=== PATIENT | male | born 1955 | race Caucasian/White ===

== ENCOUNTER 2016-08-17 06:30 | Emergency (ER) | payer OTHER ==
[~2016-08-17] VITALS: Ht 182.9 cm; Wt 131.8 kg
[~2016-08-17 06:30] MED LIST: ASPI325T32 PO; LISI1TAB11 PO
[2016-08-17 06:37] VITALS: BP 192/101; PULSE 75; RESP 16; O2SAT 98
--- NOTE | 2016-08-17 06:50 | ED.REPORT ---
HPI-General Illness Date of Service Aug 17, 2016 ED Provider: Anam Clark MD 60 y/o male with a hx of HTN presents to the ED due to a a "stinging" sensation in his temples, more on the left, onset 2-3 days ago. The pt states "several years ago, I had a blood vessel pop in the eye that felt like a bee sting. This feeling is exactly the same." Associated sx include a slight change in vision. He denies headache, fever, cough and SOB. He experienced the stinging sensation about 5 times over the last few days. It has been gradually improving and he is currently asymptomatic. The pt states he came in today because he lives alone and he didn't want to risk experiencing anything serious. Nursing Notes Stated Complaint: BEE STING ON TEMPLES Chief Complaint: General Complaint Nursing Notes Reviewed: Yes (Gentis, Royal Wins not reconciled) Allergies: Coded Allergies: No Known Allergies (Unverified , 02/03/16) Scheduled Aspirin (Aspirin) 325 Mg Tablet 325 MG PO DAILY Lisinopril / HCTZ 20-25 mg (Lisinopril / HCTZ 20-25 mg) 1 Each Tablet 1 EACH PO DAILY Lisinopril / HCTZ 20-25 mg (Lisinopril / HCTZ 20-25 mg) 1 Each Tablet 1 EACH PO DAILY General Time Seen by MD: 06:46 Chief Complaint Other (stinging sensation in temples) Hx Obtained From: Patient Arrived By: Walk-in Sudden in Onset?: Yes Onset Occurred: 3 days ago Symptom Duration: Since onset Severity: Current: No pain currently Severity: Maximum: No pain Recent Healthcare: No recent doctor visit Similar Sx Previous: No Past Medical History Past Medical History Achilles tendon rupture BPH Admit for polyarthropathy 02/03/16 w/concern for infectious etiology - hospital eval negative Reports: Hypertension Past Surgical History Reports: Tonsillectomy Smoking History Never Smoker Social History Alcohol Use: "Social" Drug Use: THC Ambulatory Status Independent Review of Systems Reports: stinging sensation in the temples (now resolved) Full Review of Systems Constitutional: Denies: Fever Respiratory: Denies: Non-productive cough, Shortness of breath Neurologic: Reports: Vision change (slightly), Denies: Headache Complete sys rev & neg: except as marked. Physical Exam Vital Signs Vital Signs Date Time Temp Pulse Resp B/P Pulse Ox O2 Delivery O2 Flow Rate FiO2 08/17/16 10:06 36.6 73 12 188/103 98 Room Air 08/17/16 10:05 73 12 188/103 98 Room Air 08/17/16 08:30 69 14 157/98 99 Room Air 08/17/16 06:37 36.6 75 16 192/101 98 Room Air Initial VS: Reviewed, Vital signs abnormal (HTN) ENT: Mucous membranes moist, Conjunctiva normal, No scleral icterus Neck: Supple, Non-tender, Full range of motion Respiratory: Breath sounds normal, No respiratory distress Cardiovascular: Regular rate & rhythm, Heart sounds normal Abdomen / GI: Soft, Non-tender Extremities: Vascular intact, Neuro intact, No swelling, No tenderness Skin: Warm, Dry, No cyanosis Neurologic: Alert, Oriented, Nonfocal General/Constitutional: Awake, Alert, No acute distress, Well appearing, Cooperative Head / Eyes: Atraumatic, Normocephalic, PERRL, Temporal arteries NL Interpretation & Diagnostics Lab Results Interpretation Result Diagram: 08/17/16 0735 08/17/16 0735 Test 08/17/16 07:35 White Blood Count 7.4th/mm3 (3.8-10.1) Red Blood Count 4.72mil/mm3 (4.40-5.80) Hemoglobin 15.6g/dL (13.8-17.2) Hematocrit 45.2% (41.0-50.0) Mean Corpuscular Volume 95.8fL (81-100) Mean Corpuscular Hemoglobin 33.1pg (27.0-35.0) Mean Corpuscular Hemoglobin Concent 34.5% (32.0-37.0) Red Cell Distribution Width 13.1% (12.3-15.4) Platelet Count 178bil/L (150-400) Neutrophils (%) (Auto) 63.2% (40-74) Lymphocytes (%) (Auto) 21.6% (14-46) Monocytes (%) (Auto) 8.6% (4-12) Eosinophils (%) (Auto) 5.8% (0-5) Basophils (%) (Auto) 0.4% (0-3) Erythrocyte Sedimentation Rate 2mm/hr (0-30) Sodium Level 140mEq/L (134-144) Potassium Level 4.0mEq/L (3.5-5.2) Chloride Level 103mEq/L (97-108) Carbon Dioxide Level 24mmol/L (18-29) Blood Urea Nitrogen 18mg/dL (8-27) Creatinine 0.92mg/dL (0.76-1.27) Estimat Glomerular Filtration Rate 89mL/min (>59) Glucose Level 116mg/dL (60-99) Calcium Level 9.4mg/dL (8.5-10.1) Total Bilirubin 1.5mg/dL (0.0-1.2) Aspartate Amino Transf (AST/SGOT) 30U/L (0-50) Alanine Aminotransferase (ALT/SGPT) 49U/L (0-44) Alkaline Phosphatase 64U/L (25-160) Total Protein 7.2g/dL (6.4-8.4) Albumin 4.1g/dL (3.4-5.0) Lab Results Interpretation: CBC normal CMP normal Sedimentation rate normal Re-Eval/Medical Decision Med Decision/Clinical Course This is a pleasant 60-year-old male who presents with a chief complaint that a couple days ago he had some left caodaism discomfort, then basically separately resolved. He had no visual symptoms. He lives by himself and was not sure whether not to be concerned, and ultimately he decided he should come in and get checked out. Having any symptoms. He has no prior history of temporal arteritis, does not have a headache at present, he has no neurologic symptoms, he has had no redness swelling or ocular symptoms. He has no additional complaints. On exam he is severely hypertensive-it turns out he is out of his hypertensive medicines. He used to take lisinopril/hydrochlorothiazide and get up from the clinic, but he did not have a PCP in the total they could not help him anymore, so he is transitioning to the [place] [facility], and has an appointment but not for #4 weeks. As a result he has been completely out of his blood pressure medicines. However he has had no end organ symptoms. The patient has no temporal artery tenderness, but given the location and symptoms of sedimentation rate was obtained and was normal. I am not finding evidence of giant cell arteritis or other dangerous etiologies. Patient's asymptomatic here in the department. I did go ahead and resume him on his lisinopril hydrochlorothiazide, he received a dose in the department his blood pressures improved, and I written a prescription until [facility] Routine precautions reviewed. Patient is discharged in good condition. Source of Hx: Old records Time of Eval: 09:45 Patient Status: Condition improved Re-Evaluation/Progress Note: Rechecked pt. Discussed lab results, imaging results, diagnosis and plan to discharge. Pt understands and agrees with the plan. F/U instructions and RTER warning given. All questions addressed. Counseled Regarding: Diagnosis, Lab results, Need for follow-up, When/why to return to ED Discharge & Departure Departure Notes Additional dx: Transient Left caodaism discomfort, resolved (unclear etiology) Primary Impression: HTN (hypertension) with goal to be determined Disposition: Home Discharge Condition All VS Reviewed: Yes Condition: Stable Additional Instructions: 1. A dangerous cause of the caodaism discomfort he had recently was not identified. Your blood tests were normal. 2. Your blood pressure was very elevated, and I have gone ahead and written a prescription for your lisinopril hydrochlorothiazide refill, and [facility] 3. Activities as tolerated. 4. Return if new or worsening symptoms. Referrals: NOPCP (PCP) Scribe Attestation Portions of this note were transcribed by Thor Morel. I, , personally performed the history, physical exam and medical decision-making;I reviewed and confirmed the accuracy of the information in the transcribed note. Signed by Tierra Jackson. 08/17/16 09:57 Anam Clark MD Aug 17, 2016 06:50 Thor Morel Aug 17, 2016 07:13
[2016-08-17 07:58] LABS: BASOPHILS % (AUTO) 0.4 % (0-3); EOSINOPHILS % (AUTO) 5.8 % (0-5); MONOCYTES % (AUTO) 8.6 % (4-12); Mean Corpuscular Hemoglobin 33.1 pg (27.0-35.0); Mean Corpuscular Volume 95.8 fL (81-100); NEUTROPHILS % (AUTO) 63.2 % (40-74); Platelet Count 178 bil/L (150-400)
[2016-08-17 08:30] VITALS: BP 157/98; PULSE 69; RESP 14; O2SAT 99
[2016-08-17 09:41] LABS: ERYTHROCYTE SEDIMENTATION RATE 2 mm/hr (0-30)
[2016-08-17] MEDS ORDERED: LISI1TAB11 PO (09:52)
[2016-08-17 10:05] VITALS: BP 188/103; PULSE 73; RESP 12; O2SAT 98
[2016-08-17 10:06] VITALS: BP 188/103; PULSE 73; RESP 12; O2SAT 98
== END 2016-08-17 10:07 | disposition home or self-care (01) ==
LOC: SED 06:30
DX: I10 Essential (primary) hypertension (principal); Z79.82 Long term (current) use of aspirin; Z79.899 Other long term (current) drug therapy